=== PATIENT | male | born 1950 | race African-American/Black ===

== ENCOUNTER 2019-03-07 10:22 | Emergency (ER) | payer OTHER ==
[~2019-03-07] VITALS: Ht 175.3 cm; Wt 95.0 kg
[2019-03-07 10:37] VITALS: BP 116/74
== END 2019-03-07 11:40 | disposition home or self-care (01) ==
LOC: ER 10:51
DX: M25.571 Pain in right ankle and joints of right foot (principal)
CPT/HCPCS: 73610; 99283

== ENCOUNTER 2023-11-13 11:43 | Emergency (ER) | payer BC, OTHER ==
[~2023-11-13] VITALS: Ht 182.9 cm; Wt 91.0 kg
[2023-11-13 12:10] VITALS: BP 127/74; PULSE 68; RESP 18; TEMP 98.2; O2SAT 97
[2023-11-13] MEDS: IBUPROFEN 400MG TABLET PO ONE (16:30)
== END 2023-11-13 17:35 | disposition home or self-care (01) ==
LOC: ER 11:43
DX: M17.12 Unilateral primary osteoarthritis, left knee (principal)
CPT/HCPCS: 73560; 93971; 99284